=== PATIENT | female | born 1960 | race Caucasian/White ===

== ENCOUNTER 2016-11-19 08:38 | Day surgery (SDC) | payer OTHER ==
[~2016-11-19] VITALS: Ht 170.2 cm; Wt 118.8 kg
[~2016-11-19 08:38] MED LIST: ALTACE10 MG PO; AMLODIPINE BESY10 MG PO; ASPIR-LOW81 MG PO; ATIVAN0.5 MG PO; CATAPRES0.3 MG PO; CELEXA20 MG PO; LANTUS 3 M100 UNITS1 SC; LOPRESSOR50 MG PO; LOSARTAN POTAS100 MG PO; MIRAPEX0.5 MG PO; PRAVACHOL40 MG PO; RENA-VITE RX T1 EACH PO
[2016-11-19 09:34] LABS: POINT-OF-CARE METER ID UU13113696
[2016-11-19 11:06] LABS: METH RESISTANT S AUREUS PCR NEGATIVE (NEGATIVE); PROBE CHECK PASS; SPECIMEN PROCESSING CONTROL PASS
== END 2016-11-19 10:56 | disposition home or self-care (01) ==
LOC: CATH 08:38
PROVIDERS: Surgery
DX: T82.858A Stenosis of other vascular prosthetic devices, implants and grafts, initial encounter (principal); Y83.2 Surgical operation with anastomosis, bypass or graft as the cause of abnormal reaction of the patient, or of later complication, without mention of misadventure at the time of the procedure; Z99.2 Dependence on renal dialysis; I12.0 Hypertensive chronic kidney disease with stage 5 chronic kidney disease or end stage renal disease; E11.22 Type 2 diabetes mellitus with diabetic chronic kidney disease; N18.6 End stage renal disease; M19.90 Unspecified osteoarthritis, unspecified site
CPT/HCPCS: 82948; 87641; C1725; C1769; C1894; J1644; J2250; J3010

== ENCOUNTER 2017-01-28 07:07 | Day surgery (SDC) | payer OTHER ==
[~2017-01-28] VITALS: Ht 171.4 cm; Wt 117.5 kg
[~2017-01-28 07:07] MED LIST changes: +CIPRO500 MG PO; +HUMALOG100 UNIT/1 SC
[2017-01-28] MEDS ORDERED: TRAMADOL HCL50 MG PO (07:27)
[2017-01-28 07:42] LABS: POINT-OF-CARE METER ID UU13113696
[2017-01-28 08:37] LABS: POINT-OF-CARE METER ID UU13113696
[2017-01-28 08:58] LABS: METH RESISTANT S AUREUS PCR NEGATIVE (NEGATIVE); PROBE CHECK PASS; SPECIMEN PROCESSING CONTROL PASS
== END 2017-01-28 09:30 | disposition home or self-care (01) ==
LOC: CATH 07:07
PROVIDERS: Surgery
DX: T82.898A Other specified complication of vascular prosthetic devices, implants and grafts, initial encounter (principal); Y83.2 Surgical operation with anastomosis, bypass or graft as the cause of abnormal reaction of the patient, or of later complication, without mention of misadventure at the time of the procedure; N18.6 End stage renal disease; Z99.2 Dependence on renal dialysis
CPT/HCPCS: 82948; 87641; C1769; C1894; J1644; J2250; J3010